=== PATIENT | female | born 1990 | race Caucasian/White ===

== ENCOUNTER 2020-06-26 15:30 | Outpatient (CLI) | payer OTHER, SELFPAY ==
--- NOTE | ~2020-06-26 | US_ITS ---
EXAMINATION: US pelvic complete DATE: 06/26/2020 16:19 INDICATION: Abnormal uterine bleeding. Patient on testosterone. Comparison:No prior studies for comparison. TECHNIQUE: Multiple transabdominal sonographic images of the pelvis performed. FINDINGS: The uterus measures 6.9 x 2.7 x 4.5 cm. The endometrial complex measures 6 mm. The right ovary measures 2.9 x 2.1 x 1.9 cm and the left ovary is not visualized. There is free fluid in the pelvis. There are no abnormal masses seen on either side. IMPRESSION: 1. Unremarkable pelvic ultrasound. Reviewed, dictated and finalized at location A.
== END 2020-06-26 15:31 | disposition home or self-care (01) ==
PROVIDERS: PCP Physician Assistant; Visit Provider Physician Assistant
DX: N93.9 Abnormal uterine and vaginal bleeding, unspecified (principal)
CPT/HCPCS: 76856